=== PATIENT | male | born 1965 | race Caucasian/White ===

== ENCOUNTER 2019-07-12 09:44 | Emergency (ER) | payer OTHER ==
[~2019-07-12] VITALS: Ht 180.3 cm; Wt 97.7 kg
[2019-07-12] MEDS ORDERED: NAPR220C14 PO (09:56)
[2019-07-12] MEDS ORDERED: PRAV20TA2 (09:56)
[2019-07-12] MEDS ORDERED: TOPR50TA (09:56)
[2019-07-12] MEDS ORDERED: BAYE325T12 PO (09:56)
[2019-07-12] MEDS ORDERED: MORPHINE 4 MG/ML 1ML VIAL/SYRINGE (J2270) IV ONE (10:15)
[2019-07-12] MEDS ORDERED: ONDANSETRON 4MG/2ML VIAL IV ONE (10:15)
[2019-07-12] MEDS ORDERED: BOOSTRIX/ADACEL VACCINE (DIPHTH/PERTUSS/ACELL/TETANUS) 0.5ML SYR IM ONE (10:15)
[2019-07-12] MEDS ORDERED: LIDOCAINE 2% MDV 20ML VIAL As Ordered ONE (10:47)
--- NOTE | 2019-07-12 11:00 | REP ---
RIGHT HAND, FOUR VIEWS: Four views right hand performed. There is dislocation posteriorly at the 3rd and 4th proximal interphalangeal joints. There is no fracture of the visualized osseous structures. Electronically Signed by Donald Beth MD 07/12/2019 11:18 A
[2019-07-12 11:13] LABS: BASO % 0.1 % (0.0-1.0); EOS # 0.2 10^3/uL (0.0-0.5); EOS % 2.5 % (0.0-3.0); HEMOGLOBIN 14.4 g/dl (13.5-17.5); LYMPH # 1.6 10^3/uL (1.5-5.0); LYMPH % 23.6 % (24.0-44.0); MEAN CORPUSCULAR HEMOGLOBIN 28.4 pg (27.0-33.0); MEAN CORPUSCULAR HGB CONC 32.7 g/dl (32.0-36.5); MEAN CORPUSCULAR VOLUME 86.8 fl (80.0-96.0); MONO # 0.5 10^3/uL (0.0-0.8); MONO % 7.8 % (0.0-5.0); NEUTROPHILS # 4.5 10^3/uL (1.5-8.5); NEUTROPHILS % 65.7 % (36.0-66.0); PLATELET COUNT, AUTOMATED 241 10^3/uL (150-450); RED BLOOD COUNT 5.07 10^6/uL (4.30-6.10); WHITE BLOOD COUNT 6.9 10^3/uL (4.0-10.0)
[2019-07-12] MEDS ORDERED: LIDOCAINE 2% MDV 20ML VIAL SC ONE (11:15)
[2019-07-12 11:27] VITALS: BP 139/68
--- NOTE | 2019-07-12 12:20 | REP ---
RIGHT FINGERS: Four views of the right fingers are performed. There is relocation of the previously noted posterior dislocation at the 3rd and 4th proximal interphalangeal joints. There may be a tiny avulsion fracture along the 3rd proximal interphalangeal joint. No other fracture is visualized. Electronically Signed by Donald Beht MD 07/12/2019 04:19 P
== END 2019-07-12 12:15 | disposition short-term general hospital (02) ==
LOC: M ED 09:44 → EDBD 09:44 → M ED 12:15
DX: S63.282A Dislocation of proximal interphalangeal joint of right middle finger, initial encounter (principal); S63.284A Dislocation of proximal interphalangeal joint of right ring finger, initial encounter; S61.210A Laceration without foreign body of right index finger without damage to nail, initial encounter; S61.212A Laceration without foreign body of right middle finger without damage to nail, initial encounter; S61.214A Laceration without foreign body of right ring finger without damage to nail, initial encounter; S61.216A Laceration without foreign body of right little finger without damage to nail, initial encounter; W29.8XXA Contact with other powered hand tools and household machinery, initial encounter; W31.1XXA Contact with metalworking machines, initial encounter; Y92.89 Other specified places as the place of occurrence of the external cause; Y93.89 Activity, other specified; Y99.0 Civilian activity done for income or pay; Z79.899 Other long term (current) drug therapy; Z79.82 Long term (current) use of aspirin; Z79.1 Long term (current) use of non-steroidal anti-inflammatories (NSAID)
CPT/HCPCS: 26770; 73130; 73140; 80047; 85025; 90471; 90715; 96374; 96375; 99284; J2270; J2405

== ENCOUNTER → 2019-07-14 | Outpatient (CLI) | payer OTHER ==
[~2019-07-14] MED LIST: BAYE325T12 PO; NAPR220C14 PO; PRAV20TA2; TOPR50TA
[2019-07-14 16:43] LABS: BLOOD UREA NITROGEN 19 MG/DL (7-18); CALCIUM LEVEL 9.3 MG/DL (8.5-10.1); CARBON DIOXIDE LEVEL 23 MEQ/L (21-32); CHLORIDE LEVEL 106 MEQ/L (98-107); CREATININE FOR GFR 0.98 MG/DL (0.70-1.30); GLOMERULAR FILTRATION RATE > 60.0 (>56); GLUCOSE, FASTING 98 MG/DL (70-100); POTASSIUM SERUM 4.4 MEQ/L (3.5-5.1); SODIUM LEVEL 136 MEQ/L (136-145)
== END ==
LOC: M WUC 14:20
PROVIDERS: ATTEND Orthopaedic Surgery
DX: Z01.818 Encounter for other preprocedural examination (principal); S63.259A Unspecified dislocation of unspecified finger, initial encounter; S61.209A Unspecified open wound of unspecified finger without damage to nail, initial encounter; X58.XXXA Exposure to other specified factors, initial encounter; Y92.9 Unspecified place or not applicable

== ENCOUNTER → 2020-05-25 | Outpatient (CLI) | payer OTHER | LOC: M LABSMTC 11:14 | PROVIDERS: ATTEND Anesthesiology | DX: Z01.812 Encounter for preprocedural laboratory examination (principal); Z20.822 Contact with and (suspected) exposure to COVID-19 ==

== ENCOUNTER 2020-05-30 10:03 | Day surgery (SDC) | payer OTHER ==
[~2020-05-30] VITALS: Ht 180.3 cm; Wt 93.9 kg
[~2020-05-30 10:03] MED LIST changes: +NS 1,000 ML IV ONE
[2020-05-30] MEDS ORDERED: propofoL 200 MG/20 ML VIAL As Ordered ONE (10:41)
[2020-05-30] MEDS ORDERED: LIDOCAINE 2% 100MG/5ML SDV (FOR ANES.) As Ordered ONE (10:41)
--- NOTE | 2020-05-30 12:24 | ROOR ---
Patient Name: Nakul Andrews Procedure Date: 05/30/2020 11:58 AM Date of : 1965 Age: 54 Room: [facility] Gender: Male Note Status: Finalized Procedure: Colonoscopy Indications: Screening for colorectal malignant neoplasm Providers: Nilton Lewis Jr, MD Referring MD: MARITA FRAGOSO Requesting Provider: Medicines: Propofol per Anesthesia Complications: No immediate complications. Procedure: Pre-Anesthesia Assessment: - Prior to the procedure, a History and Physical was performed, and patient medications and allergies were reviewed. The patient is competent. The risks and benefits of the procedure and the sedation options and risks were discussed with the patient. All questions were answered and informed consent was obtained. Patient identification and proposed procedure were verified by the physician and the nurse in the pre-procedure area and in the procedure room. Mental Status Examination: alert and oriented. Airway Examination: normal oropharyngeal airway and neck mobility. Respiratory Examination: clear to auscultation. CV Examination: normal. ASA Grade Assessment: II - A patient with mild systemic disease. After reviewing the risks and benefits, the patient was deemed in satisfactory condition to undergo the procedure. The anesthesia plan was to use moderate sedation / analgesia (conscious sedation). Immediately prior to administration of medications, the patient was re-assessed for adequacy to receive sedatives. The heart rate, respiratory rate, oxygen saturations, blood pressure, adequacy of pulmonary ventilation, and response to care were monitored throughout the procedure. The physical status of the patient was re-assessed after the procedure. The Colonoscope was introduced through the anus and advanced to the cecum, identified by appendiceal orifice and ileocecal valve. The colonoscopy was performed without difficulty. The patient tolerated the procedure well. The quality of the bowel preparation was adequate. Findings: The descending colon, transverse colon, ascending colon, cecum, appendiceal orifice and ileocecal valve appeared normal. A medium polyp was found in the sigmoid colon. The polyp was pedunculated. The polyp was removed with a hot snare. Resection and retrieval were complete. A small polyp was found in the rectum. The polyp was pedunculated. The polyp was removed with a hot snare. Resection and retrieval were complete. Impression: - The descending colon, transverse colon, ascending colon, cecum, appendiceal orifice and ileocecal valve are normal. - One medium polyp in the sigmoid colon, removed with a hot snare. Resected and retrieved. - One small polyp in the rectum, removed with a hot snare. Resected and retrieved. Recommendation: - Discharge patient to home (ambulatory). - Repeat colonoscopy date to be determined after pending pathology results are reviewed for surveillance based on pathology results. Procedure Code(s): --- Professional --- 89216, Colonoscopy, flexible; with removal of tumor(s), polyp(s), or other lesion(s) by snare technique Diagnosis Code(s): --- Professional --- Z12.11, Encounter for screening for malignant neoplasm of colon K63.5, Polyp of colon K62.1, Rectal polyp CPT copyright 2019 [employer]. All rights reserved. The codes documented in this report are preliminary and upon sergeant of corrections review may be revised to meet current compliance requirements. Nilton Lewis MD Nilton Lewis Jr, MD 05/30/2020 12:24:30 PM Electronically signed by Nilton Lewis Jr, MD Number of Addenda: 0 Note Initiated On: 05/30/2020 11:58 AM Estimated Blood Loss: Estimated blood loss: none.
[2020-05-30 12:50] VITALS: BP 118/73
== END 2020-05-30 13:04 | disposition home or self-care (01) ==
LOC: M OPP 10:03
PROVIDERS: ATTEND Surgery
DX: Z12.11 Encounter for screening for malignant neoplasm of colon (principal); D12.6 Benign neoplasm of colon, unspecified; K62.1 Rectal polyp; Z79.82 Long term (current) use of aspirin; Z79.899 Other long term (current) drug therapy

== ENCOUNTER 2024-02-11 07:12 | Day surgery (SDC) | payer OTHER ==
[~2024-02-11] VITALS: Ht 180.3 cm; Wt 87.5 kg
[~2024-02-11 07:12] MED LIST changes: +LIDOCAINE 2% 100MG/5ML SDV (FOR ANES.) As Ordered ONE; -NS 1,000 ML IV ONE; -PRAV20TA2; +PRAV20TA2 PO; -TOPR50TA; +TOPR50TA PO; +propofoL 200 MG/20 ML VIAL As Ordered ONE
[2024-02-11 08:59] VITALS: TEMP 97
[2024-02-11 09:20] VITALS: BP 110/75; O2SAT 98
== END 2024-02-11 09:24 | disposition home or self-care (01) ==
LOC: M OPP 07:12
PROVIDERS: ATTEND Surgery
DX: Z12.11 Encounter for screening for malignant neoplasm of colon (principal); D12.0 Benign neoplasm of cecum; Z86.0100 Personal history of colon polyps, unspecified; I25.2 Old myocardial infarction; I10 Essential (primary) hypertension; E78.00 Pure hypercholesterolemia, unspecified; Z79.899 Other long term (current) drug therapy; Z79.82 Long term (current) use of aspirin